=== PATIENT | male | born 1930 | race Hispanic/Latino ===

== ENCOUNTER 2016-12-31 12:30 | Inpatient (IN) | payer MEDICARE, MEDICAID ==
[2016-12-31 12:44] VITALS: BMI 20.3
[2016-12-31] MEDS ORDERED: Albuterol-Ipratrop 3 mg / 0.5 (3 ml) UD IH STA ×2 (13:05→14:24)
[2016-12-31] MEDS ORDERED: Sodium Chloride 0.9% 1,000 ML IV STA (13:06)
[2016-12-31 13:30] LABS: ARTERIAL BLOOD GAS HCO3 23.8 mmol/L (21-28); ARTERIAL BLOOD GAS PH 7.44 (7.35-7.45)
--- NOTE | 2016-12-31 13:35 | ED PDOC ---
Arrival/HPI - General Chief Complaint: GI Problem Time Seen by Provider: 12/31/16 12:31 Historian: EMS - History of Present Illness Narrative History of Present Illness (Text): 12/31/16 13:32 Patient is an 86 yo male presents from detention with history of failure to thrive and "not eating" as per detention and ambulance personnel report. No further history available currently, no family present, and patient is demented and appears to have altered mental status. Time/Duration: Prior to Arrival Symptom Onset: Gradual Past Medical History - Tetanus Immunization Tetanus Immunization: Unknown - Cardiac Hx Cardiac Disorders: Yes Hx Congestive Heart Failure: Yes - Pulmonary Hx Respiratory Disorders: Yes Hx Bronchitis: Yes - Neurological Hx Neurological Disorder: Yes HX Cerebrovascular Accident: Yes (l hemiplagia) Hx Parkinson's Disease: Yes Hx Seizures: Yes - HEENT Hx HEENT Disorder: No - Renal Hx Renal Disorder: No - Endocrine/Metabolic Hx Endocrine Disorders: No - Hematological/Oncological Hx Blood Disorders: No - Integumentary Hx Dermatological Disorder: Yes Other/Comment: OPEN SORES ON HEAD CELLULITIS RIGHT AL - Musculoskeletal/Rheumatological Hx Falls: No - Gastrointestinal Hx Gastrointestinal Disorders: Yes Hx Gastroesophageal Reflux: Yes - Genitourinary/Gynecological Hx Genitourinary Disorders: Yes Hx Incontinence: Yes (AT TIMES) - Psychiatric Hx Psychophysiologic Disorder: Yes Hx Bipolar Disorder: Yes Hx Depression: Yes Hx Substance Use: No - Past Surgical History Past Surgical History: Unable to Obtain - Surgical History Other/Comment: SKIN GRAFT RIGHT LEG - Anesthesia Hx Anesthesia: No Hx Anesthesia Reactions: No Hx Malignant Hyperthermia: No - Suicidal Assessment Feels Threatened In Home Enviroment: No Family/Social History Family/Social History: Unknown Family HX Smoking Status: Never Smoked Hx Alcohol Use: No Hx Substance Use: No Hx Substance Use Treatment: No Allergies/Home Meds Allergies/Adverse Reactions: Allergies No Known Allergies Allergy (Verified 02/06/13 08:55) Home Medications: Home Meds Medication Instructions Recorded Confirmed Acetaminophen [Tylenol (Renal)] 650 mg PO PRN PRN 12/31/16 12/31/16 Mutivitamin 1 tab PO DAILY 12/31/16 12/31/16 Phenytoin [Dilantin Chewable Tab] 200 mg PO BID 12/31/16 12/31/16 Review of Systems - Review of Systems Systems not reviewed;Unavailable: Dementia Gastrointestinal: Appetite Changes Physical Exam - Physical Exam Narrative Physical Exam (Text): Head: Atraumatic. Normocephalic. No facial edema. Eyes: PERRL. EOMI. Conjunctivae are not pale. ENT: Mucous membranes are dry. Oral lesions noted. Tongue is tacky, without angioedema. Neck: Supple. No meningeal signs. No carotid bruits. Cardiovascular: Tachycardic, systolic murmur noted. Pulmonary/Chest: Tachypneic with rhonchi bilaterally. Abdominal: Mildly distended but soft. Rectal: heme negative stool, no melena Back: No CVA tenderness. Extremities: No edema. No cyanosis. No clubbing. Full range of motion in all extremities. No calf tenderness. Skin: Skin is pale. Neurological: No acute focal weakness, noted, no acute facial droop noted. Moves all extremities. Will follow some commands. Psychiatric: Poor interaction, poor eye contact. Vital Signs Reviewed: Yes Vital Signs Temp Pulse Resp BP Pulse Ox 12/31/16 17:29 93 H 16 120/66 89 L 12/31/16 17:24 86 15 107/71 90 L 12/31/16 17:09 81 15 107/63 91 L 12/31/16 16:50 83 15 110/72 92 L 12/31/16 16:34 96 H 14 127/78 89 L 12/31/16 16:25 84 15 125/95 H 92 L 12/31/16 16:20 99.4 F 12/31/16 16:09 90 17 115/77 94 L 12/31/16 15:50 89 16 124/77 92 L 12/31/16 15:35 86 17 125/84 88 L 12/31/16 15:20 95 H 18 145/84 89 L 12/31/16 14:51 93 H 17 138/86 89 L 12/31/16 14:14 107 H 18 109/71 92 L 12/31/16 13:06 99.4 F 12/31/16 12:43 116 H 18 111/78 94 L Temperature: Afebrile Respiratory Rate: Tachypneic Appearance: Positive for: Ill-Appearing Pain Distress: Moderate Mental Status: Positive for: Confused Finger Stick Blood Glucose: 143 Medical Decision Making ED Course and Treatment: History obtained from EMS and detention report as patient is limited historian. On exam, he is hypoxic, although saturations improved when placed on nasal cannula. Patient does not appear to be in respiratory distress. No focal neuro deficits noted. Abdomen is soft with no peritoneal signs. Rectal exam with no melena or active bleeding. CXR is abnormal when compared to previous: Report Date : 12/31/2016 14:27:00 Procedure: Chest xray Dictator : Clark Moon MD IMPRESSION: Superimposed infiltrates. Chronic interstitial lung disease, this consists of reticulonodular pattern, linear interstitial changes, scarring at the apices. Nebulizers given and iv antibiotics ordered. As lactate elevated and wbc elevated with suspicion of pneumonia, code sepsis initiated. Hypernatremia noted, suspect component of dehydration as BUN/Cr also elevated. No focal neuro deficits currently noted. Will admit for pneumonia, sepsis, electrolyte abnormalities and hydration. Case d/w Dr. Patrice Delcid, will admit to telemetry bed. Oxygen saturations improved on nasal cannula. INR elevated. Patient not on blood thinner as per records. NO melena or focal neuro deficits or active bleeding noted. Repeat INR ordered. - Lab Interpretations Lab Results: 12/31/16 14:15 12/31/16 14:15 Lab Results 12/31/16 14:35: PT 28.5 H, INR 2.64 H, APTT 37.6 H 12/31/16 14:15: WBC 15.1 H D, RBC 4.53, Hgb 15.3, Hct 45.5, MCV 100.4, MCH 33.8 , MCHC 33.6, RDW 16.5 H, Plt Count 221, MPV 11.7 H, Gran % 87.7 H, Lymph % (Auto ) 4.6 L, [place] % (Auto) 7.6 H, Eos % (Auto) 0.0 L, Baso % (Auto) 0.1, Gran # 13.23 H, Lymph # 0.7 L, [place] # 1.2 H, Eos # 0.0, Baso # 0.01, pO2 56 H, VBG pH 7.36, VBG pCO2 46.0, VBG HCO3 26.0, VBG Total CO2 27.4, VBG O2 Sat (Calc) 88.2 H , VBG Base Excess 0.1, VBG Potassium 11.3 H*, Glucose 151 H, Lactate 3.3 H, FiO2 21.0, Sodium 146.0, Potassium 4.2, Chloride 116.0 H, Carbon Dioxide 25, Anion Gap 24 H, BUN 68 H, Creatinine 1.5 H, Est GFR ( Amer) 54, Est GFR ( Non-Af Amer) 44, Random Glucose 160 H, Calcium 10.2, Phosphorus 4.5, Magnesium 2.4 H, Total Bilirubin 1.5 H, AST 28, ALT 7, Alkaline Phosphatase 148 H, Lactate Dehydrogenase 468, Total Creatine Kinase 50, Troponin I 0.07 D, Total Protein 8.5 H, Albumin 3.4, Globulin 5.1, Albumin/Globulin Ratio 0.7 L, Venous Blood Potassium 11.3 H* 12/31/16 13:27: pCO2 35, pO2 46.0 L, HCO3 23.8, ABG pH 7.44, ABG Total CO2 24.9 , ABG O2 Saturation 79.8 L, ABG Base Excess 0.1, ABG Potassium 3.8, Glucose 149 H, Lactate 1.9, FiO2 21.0, Sodium 155.0 H, Chloride 119.0 H, Arterial Blood Potassium 3.8 - RAD Interpretation Narrative RAD Interpretations (Text): 12/31/16 22:51 cxr superimposed infiltrates Radiology Orders: 12/31/16 12:55 CHEST PORTABLE [RAD] Stat Ciaio Lumite Injector: Radiologist - EKG Interpretation EKG Interpretation (Text): EKG 13:02 sinus tachycardia rate of 110 with right bundle branch block, bifascicular block Interpreted by ED Physician: Yes Type: 12 lead EKG - Medication Orders Current Medication Orders: Dextrose (Dextrose 5% In Water 1000 Ml) 1,000 mls @ 100 mls/hr IV .Q10H KRISTYN Stop: 01/01/17 14:44 Last Admin: 12/31/16 21:45 Dose: 100 MLS/HR eMAR Start Stop Document 12/31/16 21:45 JUAN A (Rec: 12/31/16 21:45 JUAN A [id number] Intravenous Solution Start Date 12/31/16 Start Time 21:45 Cefepime HCl (Maxipime 2gm) 100 mls @ 100 mls/hr IVPB Q12 KRISTYN PRN Reason: Protocol Stop: 01/05/17 22:31 Linezolid (Zyvox 600mg/300ml D5w) 300 mls @ 200 mls/hr IVPB Q12 KRISTYN PRN Reason: Protocol Stop: 01/07/17 22:31 Vancomycin HCl (Vancomycin 1gm) 250 mls @ 167 mls/hr IVPB STAT STA PRN Reason: Protocol Stop: 12/31/16 23:55 Phenytoin (Dilantin) 200 mg PO BID KRISTYN Last Admin: 12/31/16 21:46 Dose: 200 MG Discontinued Medications Albuterol/Ipratropium (Duoneb 3 Mg/0.5 Mg (3 Ml) Ud) 3 ml IH STAT STA Stop: 12/31/16 13:06 Last Admin: 12/31/16 13:32 Dose: 3 ML Albuterol/Ipratropium (Duoneb 3 Mg/0.5 Mg (3 Ml) Ud) 3 ml IH STAT STA Stop: 12/31/16 14:25 Last Admin: 12/31/16 14:28 Dose: 3 ML Sodium Chloride (Sodium Chloride 0.9%) 1,000 mls @ 1,000 mls/hr IV .Q1H STA Stop: 12/31/16 14:05 Last Admin: 12/31/16 13:33 Dose: 1,000 MLS/HR eMAR Start Stop Document 12/31/16 13:33 SF (Rec: 12/31/16 13:33 [id number] Intravenous Solution Start Date 12/31/16 Start Time 13:33 End Date 12/31/16 End time 14:33 Total Infusion Time 60 Cefepime HCl (Maxipime 2gm) 100 mls @ 100 mls/hr IVPB STAT STA PRN Reason: Protocol Stop: 12/31/16 15:49 Last Admin: 12/31/16 15:23 Dose: 100 MLS/HR eMAR Start Stop Document 12/31/16 15:23 SF (Rec: 12/31/16 15:24 SF [id number] Intravenous Solution Start Date 12/31/16 Start Time 15:24 End Date 12/31/16 End time 16:24 Total Infusion Time 60 Sodium Chloride (Sodium Chloride 0.9%) 500 mls @ 1,000 mls/hr IV .Q30M STA Stop: 12/31/16 15:43 Last Admin: 12/31/16 15:24 Dose: 1,000 MLS/HR eMAR Start Stop Document 12/31/16 15:24 SF (Rec: 12/31/16 15:24 [id number] Intravenous Solution Start Date 12/31/16 Start Time 15:14 End Date 12/31/16 End time 15:45 Total Infusion Time 31 Disposition/Present on Arrival - Present on Arrival Any Indicators Present on Arrival: No History of DVT/PE: No History of Uncontrolled Diabetes: No Urinary Catheter: No History of Decub. Ulcer: No History Surgical Site Infection Following: None - Disposition Have Diagnosis and Disposition been Completed?: Yes Diagnosis: Pneumonia, Hypoxia, Renal insufficiency, Dehydration, Hypernatremia Disposition: HOSPITALIZED Disposition Time: 14:10 Patient Plan: Admission, Telemetry Patient Problems: Current Active Problems Problem Status Diagnosed Dehydration Acute Hypernatremia Acute Hypoxia Acute Pneumonia Acute Renal insufficiency Acute Condition: SERIOUS
[2016-12-31 14:27] LABS: ADD MANUAL DIFF? NO
--- NOTE | 2016-12-31 14:28 | RAD ---
HISTORY: Shortness of breath. Technique: Supine view performed @ 13:10. COMPARISON: 02/06/2013, 09/15/2015. FINDINGS: LUNGS: Worsening infiltrates bilaterally right lung greater than left. Superimposed interstitial lung disease, present on prior studies as far back as 02/06/2013. PLEURA: Pleural plaques consistent with prior asbestos exposure. CARDIOVASCULAR: Normal. OSSEOUS STRUCTURES: No significant abnormalities. VISUALIZED UPPER ABDOMEN: Normal. OTHER FINDINGS: None. IMPRESSION: Superimposed infiltrates. Chronic interstitial lung disease, this consists of reticulonodular pattern, linear interstitial changes, scarring at the apices.
[2016-12-31 14:33] LABS: VENOUS BLOOD GAS BASE EXCESS 0.1 mmol/L (0.0-2.0); VENOUS BLOOD PH 7.36 (7.32-7.43)
[2016-12-31 14:34] LABS: BASO # 0.01 K/mm3 (0.0-2.0); BASO % 0.1 % (0.0-3.0); GRAN # 13.23 (1.4-6.5); GRAN % 87.7 % (50.0-68.0); HEMATOCRIT 45.5 % (42.0-52.0); LYMPH # 0.7 (1.2-3.4); LYMPH % 4.6 % (22.0-35.0); MEAN CELL VOLUME 100.4 fL (80.0-105.0); MEAN CORPUSCULAR HEMOGLOBIN 33.8 pg (25.0-35.0); MEAN CORPUSCULAR HGB CONC 33.6 g/dl (31.0-37.0); MEAN PLATELET VOLUME 11.7 fl (7.0-11.0); MONO # 1.2 (0.1-0.6); MONO % 7.6 % (1.0-6.0); PLATELET COUNT 221 10^3/uL (120.0-450.0); RED CELL DISTRIBUTION WIDTH 16.5 % (11.5-14.5); WHITE BLOOD COUNT 15.1 10^3/ul (4.5-11.0)
[2016-12-31 14:48] LABS: ALB/GLOB RATIO 0.7 (1.1-1.8); BILIRUBIN,TOTAL 1.5 mg/dL (0.2-1.3); CALCIUM 10.2 mg/dL (8.4-10.5); POTASSIUM 4.2 mmol/L (3.6-5.0); TOTAL PROTEIN 8.5 g/dL (5.8-8.3)
[2016-12-31] MEDS ORDERED: Cefepime IV 2 gm in NS 100 ML IVPB STA (14:50)
[2016-12-31 15:02] LABS: INR 2.64 (0.93-1.08); PARTIAL THROMBOPLASTIN TIME 37.6 Seconds (23.7-30.8)
[2016-12-31 15:09] LABS: MAGNESIUM 2.4 mg/dL (1.7-2.2); PHOSPHOROUS 4.5 mg/dL (2.5-4.5)
[2016-12-31] MEDS ORDERED: Sodium Chloride 0.9% 500 ML IV STA (15:14)
[2016-12-31 15:21] LABS: TROPONIN I 0.07 ng/mL
[2016-12-31 15:24] LABS: URINE BILIRUBIN SMALL (NEGATIVE); URINE BLOOD TRACE-LYSED (NEGATIVE); URINE GLUCOSE (UA) NEGATIVE (NEGATIVE); URINE KETONE NEGATIVE (NEGATIVE); URINE LEUKOCYTE ESTERASE NEGATIVE Leu/uL (NEGATIVE); URINE PROTEIN NEGATIVE mg/dL (<30 mg/dL); URINE UROBILINOGEN 0.2 E.U./dL (<1 E.U./dL)
[2016-12-31 15:25] LABS: URINE APPEARANCE CLEAR (CLEAR); URINE COLOR DARK YELLOW (YELLOW)
[2016-12-31 15:36] LABS: URINE BACTERIA TRACE (NEG); URINE EPITHELIAL CELLS 0 - 2 /hpf (0-5); URINE RBC 0 - 2 /hpf (0-2); URINE WBC 0 - 2 /hpf (0-6)
[2016-12-31 16:26] LABS: VENOUS BLOOD GAS BASE EXCESS -2.6 mmol/L (0.0-2.0); VENOUS BLOOD PH 7.28 (7.32-7.43)
[2016-12-31 19:02] LABS: VENOUS BLOOD GAS BASE EXCESS -1.9 mmol/L (0.0-2.0); VENOUS BLOOD PH 7.33 (7.32-7.43)
[2016-12-31] MEDS ORDERED: Vancomycin 1gm in NS 250ml 250 ML IVPB STA (22:26)
[2017-01-01] MEDS: Linezolid 600 mg in D5W 300 ml 300 ML IVPB SCH ×2 (00:16→14:19)
[2017-01-01] MEDS: Cefepime IV 2 gm in NS 100 ML IVPB SCH ×3 (00:18→21:51)
[2017-01-01 00:22] LABS: VENOUS BLOOD PH 7.36 (7.32-7.43)
--- NOTE | 2017-01-01 02:52 | HP ---
CHIEF COMPLAINT AND HISTORY OF PRESENT ILLNESS: This is an 86-year-old male who was sent by me to [facility] because he was having failure to thrive. He is going to be evaluated for PEG placement by Dr. Valdivia. The patient has been slowly declining. He has not been able to eat or drink. He has not been able to ambulate for the past few months. He is also becoming more confused. The patient is n ot able to give any history because of his underlying medical and underlying dementia. ALLERGIES: No known drug allergies. PAST MEDICAL HISTORY: Dementia, bipolar disorder, osteoarthritis, subluxation of C1 and C2, hearing impairment. MEDICATIONS: Vitamins, Tylenol and Dilantin. SOCIAL HISTORY: He is not . He is a penitentiary care resident at [facility]. He has a sister hannah t is alive and a daughter that I am aware of. PHYSICAL EXAMINATION: VITAL SIGNS: Temperature is 96.6, pulse of 84, blood pressure 119/71, respirations 22, O2 saturation is 91%, height is 5 feet 7, weight is 130 pounds, BMI is 20.4. GENERAL: Patient lying in bed, flat, and in no apparent distress. HEAD AND NECK EXAM: Atraumatic, normocephalic. Conjunctivae are pink. Throat clear and mouth with moist mucosa. Oropharynx benign. He has multiple scabs on the low part of his jaw from scratching. EYES: Extraocular movements are intact. PERRLA. They will also do a full eye exam. NECK: Supple. No JVD, thyromegaly, or adenopathy. No bruits. HEART: S1 and S2 regular rate and rhythm. No murmurs, rubs, or gallops. LUNGS: Clear to auscultation bilaterally. No wheezing rales or rhonchi appreciated. No retraction s on exam. ABDOMEN: Soft, nontender, nondistended. Bowel sounds are positive in all quadrants. No rebound. No hepatosplenomegaly. EXTREMITIES: No cyanosis, clubbing, or edema. On the lower extremities, he has a lesion that is o n his legs bilaterally. It is kirti/red in color. NEURO: No facial asymmetry, tongue is midline, no uvula deviation. Power is 5/5 in upper extremity and 5/5 in lower extremity. Sensation is normal in upper extremity and lower extremity. The patien t is able to move all 4 extremities, but not able to do an exam. On physical exam, he has no effusio n. He has no facial asymmetry. PSYCH: Awake, alert, oriented x3. No anxiety or depression symptoms. Good insight. Normal affec t. : No CVA tenderness VASCULAR: 2+ pulses in carotid and pedal pulses. SKIN: No erythema or abnormal nodules noted. SPINE: Normal curvature. LYMPHADENOPATHY: No anterior cervical or posterior cervical adenopathy. No inguinal adenopathy. LABORATORY DATA: White count of 15.1, hemoglobin 15.3. Chemistry shows a sodium of 155, creatinine is 1.5, BUN is 68. Troponin is 0.07. INR is 2.6. Urine shows blood that has trace nitrites are neg ative, bilirubin small. He has a chest x-ray done that shows superimposed infiltrates, chronic interstitial lung disease. His EKG shows a sinus tachycardia of 110. There is a right bundle branch block. There are PVCs. ASSESSMENT: 1. Delirium. 2. Dementia, Alzheimer's type. 3. Hypernatremia. 4. Failure to thrive. 5. Acute kidney injury. 6. Sepsis. 7. Gait dysfunction. 8. Hearing impairment. PLAN: The patient is going to be admitted to the hospital. He was given IV fluids to help resuscita te him. The patient has an elevated white count. He has hypernatremia. He is going to be placed on D5W. He has been given IV antibiotics by . He is going to be seen by infectious disease, as well as Dr. Valdivia to evaluate the patient. He is going to need a palliative care evaluation as romelia oakley I will get Sarah Paramonte to evaluate the patient. Overall, patient's prognosis is guarded. Burke Delcid MD cc: [id number] TT: 01/01/2017 02:51:42 [place]
[2017-01-01 06:40] LABS: INR 2.68 (0.93-1.08)
[2017-01-01 06:41] LABS: MEAN CELL VOLUME 100.5 fL (80.0-105.0); MEAN CORPUSCULAR HEMOGLOBIN 33.4 pg (25.0-35.0); MEAN CORPUSCULAR HGB CONC 33.3 g/dl (31.0-37.0); MEAN PLATELET VOLUME 11.3 fl (7.0-11.0); RED CELL DISTRIBUTION WIDTH 15.7 % (11.5-14.5)
[2017-01-01] MEDS ORDERED: Albuterol-Ipratrop 3 mg / 0.5 (3 ml) UD IH STA (09:06)
--- NOTE | 2017-01-01 09:17 | CP.PCM.CON ---
History of Present Illness - History of Present Illness History of Present Illness: Palliative consult requested by Dr Patrice Delcid Reason: Goals of care HPI: Resident of [facility] sent due to lethargy, decreased appetite, failure to thrive.Chest x ray showed chronic interstitial lung disease with superimposed infiltrates. Labs indicate sepsis, hypernatremia, acute kidney injury. PMHx: dementia, bipolar disorder, osteoarthritis, hearing impairment. Social History:Former smoker,no alcohol or drug use. halfway care resident of [facility]. Advance Care Planning: The patient has an Advanced Directive. He is DNR/DNI. His sister Sangeetha Dhaliwal and his daughter Freida Billings are his health care proxies. Review of Systems: Unable to obtain, patient is non verbal and altered mental status Past Patient History - Tetanus Immunizations Tetanus Immunization: Unknown - Past Social History Smoking Status: Never Smoked - CARDIAC Hx Cardiac Disorders: Yes Hx Congestive Heart Failure: Yes - PULMONARY Hx Respiratory Disorders: Yes Hx Bronchitis: Yes - NEUROLOGICAL Hx Neurological Disorder: Yes HX Cerebrovascular Accident: Yes (l hemiplagia) Hx Parkinson's Disease: Yes Hx Seizures: Yes - HEENT Hx HEENT Problems: No - RENAL Hx Chronic Kidney Disease: No - ENDOCRINE/METABOLIC Hx Endocrine Disorders: No - HEMATOLOGICAL/ONCOLOGICAL Hx Blood Disorders: No - INTEGUMENTARY Hx Dermatological Problems: Yes Other/Comment: OPEN SORES ON HEAD CELLULITIS RIGHT AL - MUSCULOSKELETAL/RHEUMATOLOGICAL Hx Falls: No - GASTROINTESTINAL Hx Gastrointestinal Disorders: Yes Hx Gastroesophageal Reflux: Yes - GENITOURINARY/GYNECOLOGICAL Hx Genitourinary Disorders: Yes Hx Incontinence: Yes (AT TIMES) - PSYCHIATRIC Hx Psychophysiologic Disorder: Yes Hx Bipolar Disorder: Yes Hx Depression: Yes Hx Substance Use: No - SURGICAL HISTORY Other/Comment: SKIN GRAFT RIGHT LEG - ANESTHESIA Hx Anesthesia: No Hx Anesthesia Reactions: No Hx Malignant Hyperthermia: No Meds Allergies/Adverse Reactions: Allergies Allergy/AdvReac Type Severity Reaction Status Date / Time No Known Allergies Allergy Verified 02/06/13 08:55 - Medications Medications: Current Medications Albuterol/Ipratropium (Duoneb 3 Mg/0.5 Mg (3 Ml) Ud) 3 ml IH STAT STA Stop: 01/01/17 09:07 Albuterol/Ipratropium (Duoneb 3 Mg/0.5 Mg (3 Ml) Ud) 3 ml IH [id number] KRISTYN Dextrose (Dextrose 5% In Water 1000 Ml) 1,000 mls @ 100 mls/hr IV .Q10H [facility] Stop: 01/01/17 14:44 Last Admin: 12/31/16 21:45 Dose: 100 mls/hr Cefepime HCl (Maxipime 2gm) 100 mls @ 100 mls/hr IVPB Q12 KRISTYN PRN Reason: Protocol Stop: 01/05/17 22:31 Last Admin: 01/01/17 00:18 Dose: 100 mls/hr Linezolid (Zyvox 600mg/300ml D5w) 300 mls @ 200 mls/hr IVPB Q12 KRISTYN PRN Reason: Protocol Stop: 01/07/17 22:31 Last Admin: 01/01/17 00:16 Dose: 200 mls/hr Phenytoin (Dilantin) 200 mg PO BID [facility] Last Admin: 12/31/16 21:45 Dose: Not Given Physical Exam - Constitutional Appears: Cachectic, Chronically Ill - Head Exam Head Exam: NORMOCEPHALIC - Eye Exam Eye Exam: Normal appearance, PERRL - ENT Exam ENT Exam: Mucous Membranes Moist, Normal Oropharynx - Neck Exam Neck exam: Positive for: Normal Inspection - Respiratory Exam Respiratory Exam: Decreased Breath Sounds, Rhonchi - Cardiovascular Exam Cardiovascular Exam: REGULAR RHYTHM, +S1, +S2 - GI/Abdominal Exam GI & Abdominal Exam: Diminished Bowel Sounds, Soft Additional comments: no tenderness or guarding - Extremities Exam Additional comments: lower extremities contracted - Neurological Exam Neurological exam: Altered - Skin Skin Exam: Dry, Pallor Additional comments: no rashers or decubiti - Additional Findings Additional findings: Palliative performance scale rating 20 % Results - Vital Signs Recent Vital Signs: Last Vital Signs Temp 97.8 F 01/01/17 06:00 Pulse 82 01/01/17 06:00 Resp 19 01/01/17 06:00 BP 110/62 01/01/17 06:00 Pulse Ox 97 01/01/17 06:00 - Labs Result Diagrams: 01/01/17 06:00 01/01/17 06:00 Labs: Laboratory Results - last 24 hr 12/31/16 12/31/16 12/31/16 15:15 16:22 18:53 WBC RBC Hgb Hct MCV MCH MCHC RDW Plt Count MPV PT INR pO2 47 34 VBG pH 7.28 L 7.33 VBG pCO2 53.0 46.0 VBG HCO3 24.9 24.3 VBG Total CO2 26.5 25.7 VBG O2 Sat (Calc) 76.1 H 56.6 VBG Base Excess -2.6 L -1.9 L VBG Potassium 4.0 4.3 Sodium 155.0 H 157.0 H Chloride 120.0 H 120.0 H Glucose 153 H 161 H Lactate 2.3 H 2.4 H FiO2 21.0 21.0 Venous Blood Potassium 4.0 4.3 Urine Color Dark yellow Urine Appearance Clear Urine pH 6.0 Ur Specific [place] 1.020 Urine Protein Negative Urine Glucose (UA) Negative Urine Ketones Negative Urine Blood Trace-lysed H Urine Nitrate Negative Urine Bilirubin Small H Urine Urobilinogen 0.2 Ur Leukocyte Esterase Negative Urine RBC 0 - 2 Urine WBC 0 - 2 Ur Epithelial Cells 0 - 2 Urine Bacteria Trace 01/01/17 01/01/17 00:10 06:00 WBC 12.0 H D RBC 3.98 Hgb 13.3 L Hct 40.0 L MCV 100.5 MCH 33.4 MCHC 33.3 RDW 15.7 H Plt Count 186 MPV 11.3 H PT 28.9 H INR 2.68 H pO2 41 VBG pH 7.36 VBG pCO2 48.0 VBG HCO3 27.1 VBG Total CO2 28.6 H VBG O2 Sat (Calc) 77.0 H VBG Base Excess 1.0 VBG Potassium 4.8 Sodium 158.0 H Chloride 123.0 H Glucose 215 H Lactate 2.0 FiO2 21.0 Venous Blood Potassium 4.8 Urine Color Urine Appearance Urine pH Ur Specific [place] Urine Protein Urine Glucose (UA) Urine Ketones Urine Blood Urine Nitrate Urine Bilirubin Urine Urobilinogen Ur Leukocyte Esterase Urine RBC Urine WBC Ur Epithelial Cells Urine Bacteria Assessment & Plan - Assessment and Plan (Free Text) Assessment: 86 year old male admitted with sepsis, hypernatrmeia, JANELLE, failure to thrive Patient is bed bound,weak, lethargic, non verbal. Patient has an Advanced Directive. I was unable to reach health care proxy Sangeetha . I was able to reach Freida Billings his daughter and second proxy via phone.Daughter ani I spoke about patient's overall medical status. Daughter explained that patient was doing very poorly about a year ago , very similar situation but was back to bounce back. Daughter recognizes that he will never improve dramatically but stets that her father is alert and conversing when she and other family members visit him at the OR. Benefits and burdens of PEG tube tube explained in detail, questions answered. Daughter leaning towards PEG placement. She wants to speak with other family members, including Sangeetha his other health care proxy before making decision. I provided daughter with my contact information so that she could speak with me if needed. Time spent with patients daughter discussing goals of care and advance care planning, 20 minutes Plan: Continue current medical management. Will assist family in establishing goals of care
--- NOTE | 2017-01-01 09:34 | PN ---
DATE: 01/01/2017 SUBJECTIVE: The patient is not able to communicate well. PHYSICAL EXAMINATION: VITAL SIGNS: Temperature is 26.6, pulse of 84, blood pressure is 119/71, respirations 22. GENERAL: The patient comfortable, in no acute distress. HEENT: Anicteric sclerae. Moist mucosa. NECK: No JVD or adenopathy. CARDIAC: S1/S2. No murmurs. No rubs. Regular. RESPIRATORY: Clear to auscultation bilaterally. No wheezes, rales, or rhonchi. Good air entry. ABDOMEN: Bowel sounds are positive, soft, nontender, and nondistended. EXTREMITIES: No edema. Has 1+ pulses. LABORATORY DATA: White count 51, hemoglobin 15.2. Creatinine is 1.5. ASSESSMENT: 1. Failure to thrive. 2. Hypernatremia. 3. Acute kidney injury. 4. Dementia, Alzheimer's type. 5. Delirium. 6. Sepsis. 7. Gait dysfunction. 8. Hearing impairment. 9. Do not resuscitate/do not intubate. PLAN: The patient is going to need continued close followup. He may need a percutaneous endoscopic gastrostomy because he is not eating and drinking at this point. The patient is currently comfortabl e. He has a procalcitonin that has been ordered. He is on IV fluids with D5 water for his hypernatr emia. He is on cefepime for antibiotics. The patient is going to be seen by Jocelynn Newton from [facility]. He is not a physical therapy candidate as he has not been walking at all for many mon ths now. Burke Delcid MD cc: [id number] TT: 01/01/2017 09:33:22 Confirmation # [id number] Dictation # [id number] en
[2017-01-01 09:35] LABS: ALB/GLOB RATIO 0.6 (1.1-1.8); ALKALINE PHOSPHATASE 107 U/L (38-133); ALT/SGPT 7 U/L (7-56); AST/SGOT 50 U/L (15-59); BILIRUBIN,TOTAL 1.1 mg/dL (0.2-1.3); BLOOD UREA NITROGEN 52 mg/dL (7-21); CARBON DIOXIDE 26 mmol/L (21-33); CHLORIDE 116 mmol/L (98-107); GFR AFRICAN-AMERICAN > 60; GLUCOSE,RANDOM 266 mg/dL (70-110); MAGNESIUM 2.1 mg/dL (1.7-2.2); PHOSPHOROUS 2.7 mg/dL (2.5-4.5); POTASSIUM 3.8 mmol/L (3.6-5.0); SODIUM 153 mmol/L (132-148); TOTAL PROTEIN 7.2 g/dL (5.8-8.3)
--- NOTE | 2017-01-01 12:27 | CON ---
DATE: 01/01/2017 HISTORY OF PRESENT ILLNESS: The patient is an 86-year-old male who was admitted for failure to thriv e. PAST MEDICAL HISTORY: Scanty. His last cardiac evaluation revealed an ejection fraction that was mildly hypokinetic. He has severe dementia. In addition, the patient is thought to be septic and has had decreased function. He existence is bedb ound. His appetite has been decreased. He is admitted for the possibility of PEG placement. No documented previous cardiac history in the past. SOCIAL HISTORY: Unavailable. REVIEW OF SYSTEMS: Unavailable. PHYSICAL EXAMINATION: GENERAL: The patient is cachectic in bed, markedly confused, but in no distress. VITAL SIGNS: Blood pressure is 110/62, the heart rate is in the 80s. NECK: Negative JVD. LUNGS: Positive rhonchi. HEART: Reveals S1, S2. EXTREMITIES: Without edema. EKG shows nonspecific ST-T changes. LABORATORIES: Sodium is 153, glucose is 266, troponin is 0.07, BUN and creatinine is 52 and 0.7. Hemoglobin is 13.3. IMPRESSION: 1. Failure to thrive. 2. Marked dehydration. 3. Questionable non-ST elevation myocardial infarction. 4. Severe dementia. 5. Rhonchi with questionable chronic obstructive pulmonary disease. PLAN: Given these findings, the patient is a DNR/DNI. There is no preop evaluation necessary for po ssible PEG placement. Supportive care only. We will discontinue telemetry after his PEG placement. Moises Vaughan MD cc: [facility] TT: 01/01/2017 12:19:11 Confirmation # [id number] Dictation # [id number] radha
--- NOTE | 2017-01-01 13:01 | CON ---
DATE: 01/01/2017 REQUESTING PHYSICIAN: Dr. Delcid. REASON FOR CONSULTATION: I have been asked to see this unfortunate 86-year-old male resident of [facility] with a longstanding history of dementia, recently with poor oral intake and failur e to thrive over the last several weeks. The patient has been bedridden for the last several months and apparently has become increasingly confused. The patient is awake but nonverbal. History is obt ained from the chart. Routine blood work in the Emergency Room showed serum sodium to be elevated at 155. He also has elevated PT in the 20s and INR. I could not find any evidence that the patient wa s on any anticoagulants. PAST MEDICAL HISTORY: As above. Again, he has a history of dementia, degenerative joint disease, bi polar disorder, subluxation of C1 and C2. SOCIAL HISTORY: He is domiciled at [facility]. Apparently the patient has advanced directive and living will with a DNR. I do not have access to [facility] advanced directive to see whether he has any wishes regarding artificial enteral feedings. REVIEW OF SYSTEMS: Is unobtainable due to patient's dementia. PHYSICAL EXAMINATION: GENERAL: Elderly emaciated, cachectic male lying in bed awake and alert, in no distress. He does liz ve some gurgling sounds in his throat. VITAL SIGNS: Reveal temperature of 97.8, blood pressure 110/62, heart rate of 82. HEENT: Reveal poor hygiene of his oral mucosa. His tongue is dry. He has bitemporal wasting. NECK: Supple. CHEST: Reveals lungs to be clear. HEART: Reveals a regular rate and rhythm. ABDOMEN: Soft, scaphoid, nontender. EXTREMITIES: Show no pedal edema. LABORATORY DATA: Reveal white blood cell count down from 15.1 to 12, hemoglobin 13.3. Chemistries r eveal serum sodium down to 153 from 155, chloride 116, BUN 52, creatinine 0.7. PT/INR are 28.9 and 2 .68. IMPRESSION: An unfortunate 86-year-old male with advanced dementia, poor oral intake, failure to thr tung with hypernatremia and coagulopathy. He does have an advanced directive and I do not have that a t my disposal to see whether he has any directives for long-term artificial feedings. RECOMMENDATIONS: I am not inclined to put in a feeding tube at this time as there is no prognosis fo r this patient in terms of recovering from his dementia. Palliative care nurse is involved in the ca se. I believe that patient should be treated with comfort measures and supportive care without placi ng a feeding tube. The patient also has coagulopathy at this point which would prevent a feeding tub e insertion at this time. Saul Valdivia MD cc: [phone] TT: 01/01/2017 13:00:56 Confirmation # [id number] Dictation # [id number] jn
--- NOTE | 2017-01-01 13:12 | CP.PCM.CON ---
History of Present Illness - History of Present Illness History of Present Illness: 85 year old male with PMH of HTN, chronic bronchitis, Parkinson's disease, history of seizures, GERD, dementia was [facility] because the patient has been having poor appetite. Full review of systems is unobtainable because of the patient's dementia. There is no note of fevers in the penitentiary, no vomiting, no diarrhea, no convulsions , no loss of consciousness, no respiratory distress, no cough. In the ED, patient was noted to have leukocytosis and Infectious Diseases consult is requested to further evaluate and manage. Review of Systems - Review of Systems Systems not reviewed;Unavailable: Dementia Past Patient History - Tetanus Immunizations Tetanus Immunization: Unknown - Past Medical History & Family History Past Medical History?: Yes Past Family History: Reviewed and not pertinent - Past Social History Smoking Status: Never Smoked Alcohol: None Drugs: Denies Home Situation {Lives}: [facility] - CARDIAC Hx Cardiac Disorders: Yes Hx Congestive Heart Failure: Yes - PULMONARY Hx Respiratory Disorders: Yes Hx Bronchitis: Yes - NEUROLOGICAL Hx Neurological Disorder: Yes HX Cerebrovascular Accident: Yes (l hemiplagia) Hx Parkinson's Disease: Yes Hx Seizures: Yes - HEENT Hx HEENT Problems: No Other/Comment: asphasic - RENAL Hx Chronic Kidney Disease: No - ENDOCRINE/METABOLIC Hx Endocrine Disorders: No - HEMATOLOGICAL/ONCOLOGICAL Hx Blood Disorders: No - INTEGUMENTARY Hx Dermatological Problems: Yes Other/Comment: OPEN SORES ON HEAD CELLULITIS RIGHT AL - MUSCULOSKELETAL/RHEUMATOLOGICAL Hx Falls: No - GASTROINTESTINAL Hx Gastrointestinal Disorders: Yes Hx Gastroesophageal Reflux: Yes - GENITOURINARY/GYNECOLOGICAL Hx Genitourinary Disorders: Yes Hx Incontinence: Yes (AT TIMES) - PSYCHIATRIC Hx Psychophysiologic Disorder: Yes Hx Bipolar Disorder: Yes Hx Depression: Yes - SURGICAL HISTORY Other/Comment: SKIN GRAFT RIGHT LEG - ANESTHESIA Hx Anesthesia: No Hx Anesthesia Reactions: No Hx Malignant Hyperthermia: No Meds Allergies/Adverse Reactions: Allergies Allergy/AdvReac Type Severity Reaction Status Date / Time No Known Allergies Allergy Verified 02/06/13 08:55 - Medications Medications: Current Medications Dextrose (Dextrose 5% In Water 1000 Ml) 1,000 mls @ 100 mls/hr IV .Q10H KRISTYN Stop: 01/01/17 14:44 Last Admin: 12/31/16 21:45 Dose: 100 mls/hr Phenytoin (Dilantin) 200 mg PO BID KRISTYN Last Admin: 12/31/16 21:46 Dose: 200 mg Physical Exam - Constitutional Appears: Non-toxic, No Acute Distress - Head Exam Head Exam: NORMAL INSPECTION - ENT Exam ENT Exam: Mucous Membranes Moist - Neck Exam Neck exam: Negative for: Lymphadenopathy, Meningismus - Respiratory Exam Respiratory Exam: Decreased Breath Sounds, Rhonchi (scattered) - Cardiovascular Exam Cardiovascular Exam: +S1, +S2 - GI/Abdominal Exam GI & Abdominal Exam: Soft. absent: Tenderness Results - Vital Signs Recent Vital Signs: Last Vital Signs Temp 96.6 F L 12/31/16 18:27 Pulse 84 12/31/16 18:27 Resp 22 12/31/16 18:27 BP 119/71 12/31/16 18:27 Pulse Ox 91 L 12/31/16 18:27 - Labs Result Diagrams: 01/01/17 06:00 01/01/17 06:00 Labs: Laboratory Results - last 24 hr 12/31/16 12/31/16 12/31/16 15:15 16:22 18:53 pO2 47 34 VBG pH 7.28 L 7.33 VBG pCO2 53.0 46.0 VBG HCO3 24.9 24.3 VBG Total CO2 26.5 25.7 VBG O2 Sat (Calc) 76.1 H 56.6 VBG Base Excess -2.6 L -1.9 L VBG Potassium 4.0 4.3 Sodium 155.0 H 157.0 H Chloride 120.0 H 120.0 H Glucose 153 H 161 H Lactate 2.3 H 2.4 H FiO2 21.0 21.0 Venous Blood Potassium 4.0 4.3 Urine Color Dark yellow Urine Appearance Clear Urine pH 6.0 Ur Specific [place] 1.020 Urine Protein Negative Urine Glucose (UA) Negative Urine Ketones Negative Urine Blood Trace-lysed H Urine Nitrate Negative Urine Bilirubin Small H Urine Urobilinogen 0.2 Ur Leukocyte Esterase Negative Urine RBC 0 - 2 Urine WBC 0 - 2 Ur Epithelial Cells 0 - 2 Urine Bacteria Trace Assessment & Plan - Assessment and Plan (Free Text) Plan: Assessment Systemic Inflammatory Response Syndrome, consider severe sepsis with acute renal failure from bilateral healthcare-associated pneumonia with possible gram positive cocci and/or gram negative bacilli HTN chronic bronchitis Parkinson's disease history of seizures GERD dementia Plan Started patient on Zyvox and Cefepime pending blood, urine, sputum cx, PCT; reviewed CXR - patient should have a repeat CXR tomorrow Will follow clinically Overall prognosis is poor for this patient; GI has been consulted for possible PEG placement
[2017-01-01] MEDS ORDERED: Albuterol-Ipratrop 3 mg / 0.5 (3 ml) UD IH SCH (14:00)
--- NOTE | 2017-01-01 14:04 | PQF MALNUT ---
Dr. Delcid, Chart reflects this patient was admitted with failure to thrive evidenced by low body weight, BMI of 15.7, low albumin of 2.8, poor oral intake. Documentation by consultants notes that patient is cachectic, looks malnourished. There was the possibility of placing a PEG tube. Please specify if there is a nutritional diagnosis that can capture the indicators mentioned. This form is a permanent part of the medical record Clarification of your documentation is requested to better reflect the severity of illness and intensity of treatment of your patient. Indicators present [x] Cachexia (due to severe malnutrition) [x] Albumin < 2.8 [x] Dietary Consult [x] Provider documentation reflects BMI of: []_15.7 [] Low serum proteins [] Documented weight loss [x] Inability to consume adequate caloric intake [x] Anorexic [] Other: [] Location in the medical record that reflects the above clinical findings: [] Treatment Provided: [] PHYSICIAN'S RESPONSE Based on your medical judgment of the clinical indicators outlined above, are you treating this patient for a known or suspected: Type of Malnutrition Severity [] Mild [x] Moderate [] Severe [] Protein calorie [] Mild [x] Moderate [] severe [] Other, please indicate: []_ [] If Unable to Determine, please check the box, sign and date. Present On Admission (POA) Indicator: [x] Present at the time of admission [] Not present at the time of admission [] Clinically Undetermined In responding to this query, please exercise your independent professional judgment. The fact that a question is asked does not imply that any particular answer is desired or expected. Thank you for your clarification on this documentation. If you have any questions please call:[ ] * Thank you, [ ]Celina Patton [facility] #[id number] specialty plant supervisor Malnutrition Malnutrition results from an imbalance between the body's intake of nutrients and the body's use of nutrients to fuel energy expenditure. Malnutrition may be described as mild, moderate or severe. There are variations in clinical indicators, lab values and risk factors with each type and degree. When reviewing the nutritional status of the client, the entire clinical picture should be assessed and taken into consideration rather than a focus on a single laboratory value. Mild Malnutrition: patient's weight is noted at 85-95% of normal body weight; BMI 18-18.9; serum albumin 3.0-3.4; total lymphocyte count [id number]. Moderate Malnutrition: patient's weight is noted at 75-85% of normal body weight ; BMI 16-17.9; serum albumin 2.4-3.0; total lymphocyte count 800-1500. Severe Malnutrition: patient's weight is noted at <75% of normal body weight, BMI <16, serum albumin <2.4, total lymphocyte count <800, abnormally low VLDL/ LDL levels, creatinine <0.6, BUN <8, cholesterol <160. Other clinical indicators include: loss of subq fat, muscle wasting of the extremities, skin lesions, decubitus ulcers, hair loss, lethargy, constipation, decreased pulse/ respiratory rates, relative hypotension, hepatomegaly d/t fat infiltration, poor wound healing.~~~~~~ Risk: poor intake d/t food avoidance or NPO status for >7 days, protracted nutritional losses from malabsorption states, hypermetabolic state such as sepsis, prolonged fever, extensive trauma or goff, alcohol/drug abuse, advanced age, CKD, trouble chewing or swallowing, some medications, depression/ social isolation, special diets such as low protein Treatment: dietary consultation, protein-calorie dietary supplementation, daily weights, PEG tube, psychiatric consultation, appetite stimulants (Megace). Harr[employer] Principles of Internal Medicine, 17th edition, chapters 9, 72 and 234. The [employer] Nutritional Support Core Curriculum, 2007 [facility]
[2017-01-01] MEDS ORDERED: Linezolid 600 mg in D5W 300 ml 300 ML IVPB SCH (15:52)
[2017-01-01] MEDS ORDERED: Albuterol-Ipratrop 3 mg / 0.5 (3 ml) UD IH PRN (17:02)
--- NOTE | 2017-01-01 18:50 | CARD ---
APPROVED REPORT EKG Measurement Heart [id number] <Conclusion> Sinus tachycardia with occasional premature ventricular complexes Right bundle branch block Left posterior fascicular block Bifascicular block Abnormal ECG
[2017-01-01] MEDS: Albuterol-Ipratrop 3 mg / 0.5 (3 ml) UD IH SCH (19:06)
[2017-01-02] MEDS: Linezolid 600 mg in D5W 300 ml 300 ML IVPB SCH ×2 (05:41→18:55)
[2017-01-02 07:17] LABS: HEMATOCRIT 39.4 % (42.0-52.0); MEAN CELL VOLUME 101.5 fL (80.0-105.0); MEAN CORPUSCULAR HEMOGLOBIN 33.2 pg (25.0-35.0); MEAN CORPUSCULAR HGB CONC 32.7 g/dl (31.0-37.0); MEAN PLATELET VOLUME 11.5 fl (7.0-11.0); RED CELL DISTRIBUTION WIDTH 16.3 % (11.5-14.5)
[2017-01-02 07:42] LABS: ALB/GLOB RATIO 0.6 (1.1-1.8); ALKALINE PHOSPHATASE 108 U/L (38-133); ALT/SGPT 18 U/L (7-56); AST/SGOT 48 U/L (15-59); BILIRUBIN,TOTAL 0.9 mg/dL (0.2-1.3); BLOOD UREA NITROGEN 48 mg/dL (7-21); CALCIUM 9.7 mg/dL (8.4-10.5); CARBON DIOXIDE 26 mmol/L (21-33); CHLORIDE 117 mmol/L (95-110); GFR AFRICAN-AMERICAN > 60; GLUCOSE,RANDOM 157 mg/dL (70-110); POTASSIUM 4.2 mmol/L (3.6-5.0); TOTAL PROTEIN 7.6 g/dL (5.8-8.3)
[2017-01-02] MEDS: Albuterol-Ipratrop 3 mg / 0.5 (3 ml) UD IH SCH ×2 (07:45→20:03)
[2017-01-02 07:54] LABS: SODIUM 156 mmol/L (132-148)
--- NOTE | 2017-01-02 09:32 | PN ---
DATE: 01/02/2017 SUBJECTIVE: The patient is in bed, lethargic, weak, not taking p.o. PHYSICAL EXAMINATION: VITAL SIGNS: Blood pressure is 111/68, the heart rate is in the 90s. NECK: Negative JVD. LUNGS: Decreased breath sounds. HEART: Reveals S1, S2. EXTREMITIES: Without edema. LABORATORY DATA: Hemoglobin is 12.9. Chemistries: Sodium is 156, glucose is 157. IMPRESSION: 1. Failure to thrive. 2. Dehydration. 3. Dementia. 4. Chronic obstructive pulmonary disease. PLAN: Given these findings, the patient is currently DNR/DNI. Prognosis is poor. Continue supporti ve care. Moises Vaughan MD cc: [phone] TT: 01/02/2017 09:32:00 Confirmation # [id number] Dictation # [id number] tn
[2017-01-02] MEDS: Cefepime IV 2 gm in NS 100 ML IVPB SCH ×2 (10:00→21:37)
--- NOTE | 2017-01-02 12:18 | PN ---
DATE: 01/02/2017 The patient is an 86-year-old, seen and examined, seems to be cachectic, malnourished, poorly respons tung, dry oral mucosa, according to nurse not eating and tolerating. PHYSICAL EXAMINATION: VITAL SIGNS: The patient is afebrile, pulse 90, respirations 22, blood pressure 111/68. LUNGS: Bilateral soft crackle in the upper lung region. He is gurgling his throat secretions. HEART: S1, S2 audible with systolic murmur. ABDOMEN: Soft, nontender, no rebound, no guarding. NEUROLOGIC: The patient is poorly responsive, hardly open eyes on verbal command, bilateral leg dry skin with poor turgor. LABORATORY EXAMINATION: WBC is 10, hemoglobin 12.9, hematocrit 39.4, platelet of 163. Sodium 156, p otassium 4.2, chloride 117, CO2 26, BUN 48, creatinine 0.7, blood sugar 157. Procalcitonin is 0.89. Blood culture and urine cultures are negative. ASSESSMENT AND PLAN: 1. Metabolic encephalopathy. 2. Advanced dementia. 3. Hypernatremia, secondary to poor oral intake. 4. Acute kidney injury. 5. Sepsis. PLAN: Prognosis is very poor. The patient's oral intake is very poor. We will keep him on low dose IV fluid. I will change his Dilantin to 200 IV b.i.d. He is not capable of swallowing on his own. I will start a small dose of analgesic. We will continue him on cefepime. The patient is a perfect candidate for hospice care. He cannot be fed because of high discomfort aspiration. We will reach o ut to the family for hospice care and comfort care. Osvaldo Collins MD cc: [phone] TT: 01/02/2017 12:17:12 Confirmation # [id number] Dictation # [id number] ln
--- NOTE | 2017-01-02 13:03 | PN ---
DATE: 01/02/2017 The patient is in bed in no acute distress, nontoxic. PHYSICAL EXAMINATION: VITAL SIGNS: Temperature is 98, blood pressure is 111/60, respiratory rate of 16. HEENT: Unremarkable. NECK: Supple. LUNGS: Have decreased breath sounds. HEART: Normal S1, S2. ABDOMEN: Soft, nontender. LABORATORY DATA: Reveals a white count of 10,000, hemoglobin of 12, platelets of 163. Chemistries r eveal the BUN of 48, creatinine of 0.7. Procalcitonin 0.8. Urinalysis is noted. Microbiology revea ls the blood cultures are negative. Urine cultures are negative. ASSESSMENT AND PLAN: This is an 86-year-old male with systemic inflammatory response syndrome, sever e sepsis, acute renal failure with bilateral healthcare associated pneumonia, possible gram-positive cocci, possible gram-negative yael with hypertension, chronic bronchitis and Parkinson's disease, hist ory of seizures, gastroesophageal reflux disease, dementia. On Zyvox and cefepime. Overall, prognos is is quite poor for this patient. The patient's initial chest x-ray, worsening infiltrates. Dr. Laurent Love's note is reviewed. Blood culture is negative. Urine culture is negative. The patient razo s have a procalcitonin of 0.89. Overall prognosis is quite poor. Avery Almodovar MD cc: [phone] TT: 01/02/2017 13:03:20 Confirmation # [id number] Dictation # [id number] radha
[2017-01-02] MEDS: Phenytoin 100 mg/2 ml Inj IVP SCH ×2 (13:16→18:56)
[2017-01-03] MEDS: Linezolid 600 mg in D5W 300 ml 300 ML IVPB SCH ×2 (05:15→17:46)
[2017-01-03] MEDS: Albuterol-Ipratrop 3 mg / 0.5 (3 ml) UD IH SCH ×2 (08:07→21:00)
[2017-01-03] MEDS: Cefepime IV 2 gm in NS 100 ML IVPB SCH ×2 (09:30→22:08)
[2017-01-03] MEDS: Phenytoin 100 mg/2 ml Inj IVP SCH ×3 (09:32→17:46)
--- NOTE | 2017-01-03 10:55 | PN ---
DATE: 01/03/2017 The patient seen earlier this morning. No acute distress, nontoxic. PHYSICAL EXAMINATION: VITAL SIGNS: Temperature is 97, blood pressure is 109/60, respiratory rate of 21. HEENT: Unremarkable. NECK: Supple. LUNGS: Have decreased breath sounds. HEART: Normal S1, S2. ABDOMEN: Soft, nontender. LABORATORY DATA: Reveals a white count of 10,000, hemoglobin of 12 and platelets of 163. Coagulatio n is noted. BUN is noted and creatinine of 0.7 with a BUN of 49 and procalcitonin 0.89. Urinalysis is noted. Review of the orders reveals the patient to be on Zyvox and cefepime. ASSESSMENT AND PLAN: This is an 86-year-old male with systemic inflammatory response syndrome, sever e sepsis, acute renal failure, bilateral healthcare-associated pneumonia, possible gram-positive cocc i, possible gram-negative yael with elevated procalcitonin with hypertension, chronic bronchitis, Park inson's, history of seizures, gastroesophageal reflux disease, dementia, cachectic end-stage wasting syndrome with severe sepsis with x-rays of worsening infiltrates and cultures negative, on Zyvox and cefepime. The patient's overall prognosis is quite poor. Should consider hospice setting for this p atient who has end-stage cachexia wasting syndrome with poor quality of life. Avery Almodovar MD cc: 350 TT: 01/03/2017 10:54:34 Confirmation # [id number] Dictation # [id number] patricio
--- NOTE | 2017-01-03 14:51 | PN ---
DATE: 01/03/2017 The patient is an 86-year-old, seen and examined, awake and alert, but confused, disoriented, dry ora l mucosa, unable to eat, belly seems to be distended. PHYSICAL EXAMINATION: VITAL SIGNS: He is afebrile, pulse 81, respirations 21, blood pressure 109/67. LUNGS: Bilateral fair airflow, no rhonchi or crackle. HEART: S1, S2 audible. ABDOMEN: Soft, but slightly distended. Bowel sounds are sluggish. NEUROLOGIC: He is lethargic, but opens eyes on verbal command. EXTREMITIES: Bilateral legs, dry skin. No ulcers. ASSESSMENT: 1. Acute renal failure. 2. Hypernatremia, secondary to poor oral intake. 3. Dementia. 4. Metabolic encephalopathy. 5. Sepsis. PLAN: Currently, patient is n.p.o. We will keep him on 60 mL of IV fluids. We will keep him n.p.o. , give him IV fluids and give him 1 Dulcolax suppository. I will order for x-ray of the abdomen to r ule out any obstruction. He is currently getting cefepime. The patient is DNR. Overall prognosis i s poor. Family is thinking about PEG placement. Osvaldo Collins MD cc: [phone] TT: 01/03/2017 14:51:29 Confirmation # [id number] Dictation # [id number] en
[2017-01-04] MEDS: Linezolid 600 mg in D5W 300 ml 300 ML IVPB SCH ×2 (05:27→17:29)
[2017-01-04 06:41] LABS: ADD MANUAL DIFF? NO
[2017-01-04 06:48] LABS: EOS % 0.1 % (1.5-5.0); GRAN # 6.59 (1.4-6.5); GRAN % 86.4 % (50.0-68.0); HEMATOCRIT 34.4 % (42.0-52.0); LYMPH # 0.6 (1.2-3.4); LYMPH % 7.7 % (22.0-35.0); MEAN CORPUSCULAR HGB CONC 33.7 g/dl (31.0-37.0); MEAN PLATELET VOLUME 11.6 fl (7.0-11.0); MONO # 0.4 (0.1-0.6); MONO % 5.8 % (1.0-6.0); PLATELET COUNT 130 10^3/uL (120.0-450.0); RED CELL DISTRIBUTION WIDTH 16.1 % (11.5-14.5); WHITE BLOOD COUNT 7.6 10^3/ul (4.5-11.0)
[2017-01-04 07:12] LABS: INR 3.03 (0.93-1.08); PARTIAL THROMBOPLASTIN TIME 37.4 Seconds (23.7-30.8)
[2017-01-04 07:19] LABS: ALB/GLOB RATIO 0.6 (1.1-1.8); ALKALINE PHOSPHATASE 88 U/L (38-133); ALT/SGPT 10 U/L (7-56); AST/SGOT 23 U/L (15-59); BLOOD UREA NITROGEN 47 mg/dL (7-21); CALCIUM 9.3 mg/dL (8.4-10.5); CARBON DIOXIDE 26 mmol/L (21-33); CHLORIDE 119 mmol/L (98-107); GFR AFRICAN-AMERICAN > 60; GLUCOSE,RANDOM 182 mg/dL (70-110); PHOSPHOROUS 1.8 mg/dL (2.5-4.5); POTASSIUM 3.3 mmol/L (3.6-5.0); SODIUM 155 mmol/L (132-148); TOTAL PROTEIN 6.9 g/dL (5.8-8.3)
[2017-01-04] MEDS: Albuterol-Ipratrop 3 mg / 0.5 (3 ml) UD IH SCH ×2 (08:04→19:55)
--- NOTE | 2017-01-04 08:53 | PN ---
DATE: 01/04/2017 SUBJECTIVE: The patient opens eyes, but does not respond much. PHYSICAL EXAMINATION: VITAL SIGNS: Temperature is 98.2, pulse of 98, blood pressure is 144/88, respirations 24. GENERAL: The patient comfortable, in no acute distress. HEENT: Anicteric sclerae. Moist mucosa. NECK: No JVD or adenopathy. CARDIAC: S1/S2. No murmurs. No rubs. Regular. RESPIRATORY: Clear to auscultation bilaterally. No wheezes, rales, or rhonchi. Good air entry. ABDOMEN: Bowel sounds are positive, soft, nontender, and nondistended. EXTREMITIES: No edema. Has 1+ pulses. LABORATORIES: White count of 7.6, hemoglobin 11.6. Potassium is 3.3, creatinine 0.6. ASSESSMENT: 1. Hypernatremia. 2. Hypokalemia. 3. Dementia, Alzheimer's type. 4. Failure to thrive. 5. Sepsis. 6. Gait dysfunction. 7. Hearing impairment. 8. Do not resuscitate/do not intubate. PLAN: The patient is being given IV fluids. The patient is on D5 with dextrose. I will place potas sium in his fluids. We will need to increase his IV fluids. The patient is on nebulizer treatments. He is on cefepime for antibiotics. His blood cultures and urine cultures have been negative. He i s being followed by infectious disease. I did review Dr. Almodovar's note from yesterday. The judy ent is do not resuscitate/do not intubate. I have had Sarah Paramonte evaluate the patient. The patie nt remains n.p.o. Overall prognosis is poor. Burke Delcid MD cc: [phone] TT: 01/04/2017 08:52:11 Confirmation # [id number] Dictation # [id number] en
[2017-01-04] MEDS: Cefepime IV 2 gm in NS 100 ML IVPB SCH ×2 (09:31→21:36)
[2017-01-04] MEDS: Phenytoin 100 mg/2 ml Inj IVP SCH ×3 (09:32→17:29)
[2017-01-04] MEDS: Dextrose 5%/0.45% NS 1,000 ML IV SCH (10:21)
[2017-01-04] MEDS: Potassium Chloride 20 mEq 100 ML IVPB SCH ×2 (10:21→13:46)
--- NOTE | 2017-01-04 11:56 | CP.PCM.PN ---
Subjective - Date & Time of Evaluation Date of Evaluation: 01/04/17 Time of Evaluation: 10:00 - Subjective Subjective: Lethargic, opens eyes when name is called. In no acute distress. Objective - Vital Signs/Intake and Output Vital Signs (last 24 hours): Temp Pulse Resp BP Pulse Ox 98.2 F 90 21 104/59 L 88 L 01/04/17 06:00 01/04/17 06:00 01/04/17 06:00 01/04/17 06:00 01/04/17 06:00 Intake and Output: 01/04/17 01/04/17 06:59 18:59 Intake Total 2700 Balance 2700 - Medications Medications: Current Medications Albuterol/Ipratropium (Duoneb 3 Mg/0.5 Mg (3 Ml) Ud) 3 ml IH BID KRISTYN Last Admin: 01/04/17 08:04 Dose: 3 ml Albuterol/Ipratropium (Duoneb 3 Mg/0.5 Mg (3 Ml) Ud) 3 ml IH [id number] PRN PRN Reason: Shortness of Breath Last Admin: 01/02/17 20:37 Dose: 3 ml Cefepime HCl (Maxipime 2gm) 100 mls @ 100 mls/hr IVPB Q12 KRISTYN PRN Reason: Protocol Stop: 01/05/17 22:31 Last Admin: 01/04/17 09:31 Dose: 100 mls/hr Linezolid (Zyvox 600mg/300ml D5w) 300 mls @ 200 mls/hr IVPB 0600,1800 KRISTYN PRN Reason: Protocol Stop: 01/05/17 06:01 Last Admin: 01/04/17 05:27 Dose: 200 mls/hr Potassium Chloride (Potassium Chloride 20 Meq/100 Ml) 100 mls @ 50 mls/hr IVPB Q2H KRISTYN Stop: 01/04/17 13:59 Last Admin: 01/04/17 10:21 Dose: 50 mls/hr Dextrose/Sodium Chloride (Dextrose 5%/0.45% Ns 1000 Ml) 1,000 mls @ 75 mls/hr IV .[id number] KRISTYN Last Admin: 01/04/17 10:21 Dose: 75 mls/hr Phenytoin (Dilantin) 100 mg IVP TID KRISTYN Last Admin: 01/04/17 09:32 Dose: 100 mg - Labs Labs: 01/04/17 05:45 01/04/17 05:45 PT 32.7 Seconds (9.9-11.8) H* 01/04/17 06:30 INR 3.03 (0.93-1.08) H 01/04/17 06:30 APTT 37.4 Seconds (23.7-30.8) H 01/04/17 06:30 - Constitutional Appears: Cachectic, Chronically Ill - Eye Exam Eye Exam: Normal appearance, PERRL - ENT Exam ENT Exam: Mucous Membranes Moist, Normal Oropharynx - Neck Exam Neck Exam: Normal Inspection - Respiratory Exam Respiratory Exam: Decreased Breath Sounds, NORMAL BREATHING PATTERN - Cardiovascular Exam Cardiovascular Exam: REGULAR RHYTHM, +S1, +S2 - GI/Abdominal Exam GI & Abdominal Exam: Soft, Diminished Bowel Sounds - Exam Additional comments: oliguric - Back Exam Back Exam: NORMAL INSPECTION - Neurological Exam Neurological Exam: Altered - Skin Skin Exam: Dry, Pallor Assessment and Plan - Assessment and Plan (Free Text) Assessment: 86 year old male, resident of [facility] admitted with failure to thrive, hypernartemia, altered mental status. Family had been considering PEG placement. I had a lengthy discussion with patient's daughter Freida on Wednesday regarding his status as well as the benefits and burdens of PEG feedings. Hospice option for care also discussed at that time. Daughter wanted to wait the weekend before making any decision regarding goals of care. Dr Valdivia has since seen the patient and indicated in his consult note that patient is not a candidate for PEG due to advanced dementia and overall poor prognosis. I contacted patient daughter via phone this morning. she was working . She indicated that she did want to speak with me but could not talk till later in the day. She stated that she would call me this afternoon.
--- NOTE | 2017-01-04 12:26 | PN ---
DATE: 01/04/2017 SUBJECTIVE: The patient is lying in bed. His eyes are open, but the patient is nonverbal. He is no t taking any nutrition by mouth. PHYSICAL EXAMINATION: VITAL SIGNS: Reveal temperature of 98.2, blood pressure 104/59, heart rate of 90. HEENT: Revealed bitemporal wasting. Oral mucosa is dry. NECK: Supple. CHEST: Revealed distant breath sounds. HEART: Reveals regular rate and rhythm. ABDOMEN: Soft, nontender. LABORATORY DATA: Reveal BUN of 47, creatinine 0.6, sodium remains high at 155, potassium is 3.3, blo od sugar is 182. IMPRESSION: This is an 86-year-old male with advanced Alzheimer dementia, admitted to the hospital w ith hypernatremia, coagulopathy, poor oral intake and failure to thrive for several weeks. He does h ave an advanced directive that says that if "there is no reasonable expectation of regaining a meanin gful quality of life, then life-prolonging measures such as artificially administered fluids and nutr ition" should be withheld. Due to the patient's advanced Alzheimer's dementia, he is unlikely to reg ain any meaningful quality of life. RECOMMENDATIONS: Agree with palliative care and consideration of hospice. Saul Valdivia MD cc: [phone] TT: 01/04/2017 12:25:14 Confirmation # [id number] Dictation # [id number] en
--- NOTE | 2017-01-04 17:19 | CP.PCM.PN ---
Subjective - Date & Time of Evaluation Date of Evaluation: 01/04/17 Time of Evaluation: 09:50 - Subjective Subjective: Comfortable in bed, not in distress, no fevers overnight. Objective - Vital Signs/Intake and Output Vital Signs (last 24 hours): Temp Pulse Resp BP Pulse Ox 98.2 F 98 H 24 144/88 93 L 01/03/17 17:00 01/03/17 17:00 01/03/17 17:00 01/03/17 17:00 01/03/17 17:00 Intake and Output: 01/04/17 01/04/17 06:59 18:59 Intake Total 2700 Balance 2700 - Medications Medications: Current Medications Albuterol/Ipratropium (Duoneb 3 Mg/0.5 Mg (3 Ml) Ud) 3 ml IH BID KRISTYN Last Admin: 01/04/17 08:04 Dose: 3 ml Albuterol/Ipratropium (Duoneb 3 Mg/0.5 Mg (3 Ml) Ud) 3 ml IH [id number] PRN PRN Reason: Shortness of Breath Last Admin: 01/02/17 20:37 Dose: 3 ml Cefepime HCl (Maxipime 2gm) 100 mls @ 100 mls/hr IVPB Q12 KRISTYN PRN Reason: Protocol Stop: 01/05/17 22:31 Last Admin: 01/03/17 22:08 Dose: 100 mls/hr Linezolid (Zyvox 600mg/300ml D5w) 300 mls @ 200 mls/hr IVPB 0600,1800 KRISTYN PRN Reason: Protocol Stop: 01/05/17 06:01 Last Admin: 01/04/17 05:27 Dose: 200 mls/hr Phenytoin (Dilantin) 100 mg IVP TID KRISTYN Last Admin: 01/03/17 17:46 Dose: 100 mg - Labs Labs: 01/04/17 05:45 01/04/17 05:45 PT 32.7 Seconds (9.9-11.8) H* 01/04/17 06:30 INR 3.03 (0.93-1.08) H 01/04/17 06:30 APTT 37.4 Seconds (23.7-30.8) H 01/04/17 06:30 - Constitutional Appears: Non-toxic, No Acute Distress - Head Exam Head Exam: NORMAL INSPECTION - Neck Exam Neck Exam: absent: Lymphadenopathy, Meningismus - Respiratory Exam Respiratory Exam: Decreased Breath Sounds - Cardiovascular Exam Cardiovascular Exam: +S1, +S2 - GI/Abdominal Exam GI & Abdominal Exam: Soft. absent: Tenderness Assessment and Plan - Assessment and Plan (Free Text) Plan: Assessment consider severe sepsis with acute renal failure from bilateral healthcare- associated pneumonia with possible gram positive cocci and/or gram negative bacilli, slowly improving HTN chronic bronchitis Parkinson's disease history of seizures GERD dementia Plan continue Zyvox and Cefepime (Day 4); targert 4-7 days of therapy Will continue to follow clinically Overall prognosis is poor for this patient
[2017-01-04 17:58] VITALS: RESP 18
[2017-01-04] MEDS: Phytonadione 10 mg/ml Inj (Adult) SC SCH (18:28)
--- NOTE | 2017-01-04 20:34 | CON ---
DATE: 01/04/2017 REQUESTED BY: Dr. Burke Delcid. REASON FOR CONSULTATION: Coagulopathy. HISTORY OF PRESENT ILLNESS: The patient is an 86-year-old male admitted to the hospital for failure to thrive from shelter. He was admitted for placement of PEG tube placement because he was not eating and drinking. He does not respond to verbal commands. He was found to be coagulopathic with elevated PT, PTT, INR. PTT elevated to 37, INR to 3 and PT of 32. He does not have overt bleeding. No petechie, no rash. No dark colored stools. He was also found to have an elevated white count of 15,000 on admission. He has bilateral lung infiltrates, for which he is on IV antibiotics. He is being treated for sepsis and acute renal failure, also hypernatremia. He has advanced dementia and does not respond to verbal command. His sodium is improving. Palliative care services following for possible hospice placement. Review of Systems : as per HPI, rest 12 point system reviewed negative. ALLERGIES: No known drug allergies. PAST MEDICAL HISTORY: Dementia, bipolar disorder, osteoarthritis, hearing impairment, hypertension, Parkinson disease, dementia, GERD. PAST SURGICAL HISTORY: Skin graft to right leg. FAMILY HISTORY: No positive history in mother or father. HOME MEDICATIONS: Tylenol 650 q. 4 hours p.r.n., multivitamin, Dilantin 200 mg p.o. b.i.d. CURRENT MEDICATIONS: DuoNeb 3 mL q. 6 hours p.r.n., cefepime IV, Zyvox b.i.d., Dilantin 100 mg IV t.i.d. LABORATORY DATA: White count on admission 15,000, hemoglobin 11.6, platelet count 130. PT 32.7, INR 3, PTT 37. Sodium 155, potassium 3.3, creatinine 0.6, phosphorus 1.8 and creatinine 0.6. PHYSICAL EXAMINATION: GENERAL: Comfortable in bed, in no acute distress, not arousable. Does not respond to verbal command. VITAL SIGNS: Blood pressure 130/61, temperature 98.4, heart rate is 73 per minute, oxygen saturation 96% on nasal cannula. HEENT: Head atraumatic, normocephalic. Oral mucosa dry. NECK: No lymphadenopathy. Pupils equally reacting to light. The rest of HEENT is normal. CHEST: Air entry present, equal bilateral. No added sound. CARDIOVASCULAR: Within normal limits. ABDOMEN: Soft, nontender, no hepatosplenomegaly. EXTREMITIES: No edema. SKIN: No petechia, no rash. CENTRAL NERVOUS SYSTEM: Not oriented to time, place, person. No focal neurosensory deficit. Lymphadenopathy none. ASSESSMENT: 1. Coagulopathy. 2. Leukocytosis. 3. Anemia. 4. Hypernatremia. 5. Sepsis. 6. Bilateral lung infiltrate. 7. Parkinson disease. 8. Advanced dementia. 9. Gastroesophageal reflux disease. 10. Failure to thrive. PLAN: 1. He is coagulopathic with elevated PT, PTT, INR, likely due to malnutrition and liver dysfunction. Vitamin K 10 mg subQ for 3 days ordered. It might improve the coagulopathy. If it does not he might have factor deficiency that can be acquired. I will hold the workup as he might be placed on hospice soon for failure to thrive. Will monitor PT, PTT, INR. 2. Leukocytosis. He is on IV antibiotic. White count improved. 3. Anemia, multifactorial. We will continue to monitor hemoglobin and hematocrit. Will hold the workup for anemia for now. 4. Bilateral pneumonia, currently on Zyvox and cefepime. ID notes reviewed. 5. Neurologic. Sensorium altered. No focal sensorimotor deficit, advanced dementia. 6. Failure to thrive, not eating and drinking. PEG tube placement is on hold. Discussed with the staff nurse. Thank you, Dr. Delcid, for allowing us to participate in the patient's care. Salima Daniels MD cc: [id number] TT: 01/04/2017 20:33:09 Confirmation # [id number] Dictation # [id number] [facility]
[2017-01-05] MEDS: Linezolid 600 mg in D5W 300 ml 300 ML IVPB SCH (05:22)
[2017-01-05] MEDS: Dextrose 5%/0.45% NS 1,000 ML IV SCH (05:22)
[2017-01-05 07:10] LABS: ALB/GLOB RATIO 0.6 (1.1-1.8); ALKALINE PHOSPHATASE 88 U/L (38-133); ALT/SGPT 12 U/L (7-56); AST/SGOT 24 U/L (15-59); BILIRUBIN,TOTAL 1.2 mg/dL (0.2-1.3); BLOOD UREA NITROGEN 41 mg/dL (7-21); CALCIUM 9.4 mg/dL (8.4-10.5); CARBON DIOXIDE 24 mmol/L (21-33); CHLORIDE 120 mmol/L (98-107); GFR AFRICAN-AMERICAN > 60; GLUCOSE,RANDOM 169 mg/dL (70-110); POTASSIUM 4.1 mmol/L (3.6-5.0); TOTAL PROTEIN 7.2 g/dL (5.8-8.3)
[2017-01-05 07:11] LABS: HEMATOCRIT 35.6 % (42.0-52.0); MEAN CELL VOLUME 98.6 fL (80.0-105.0); MEAN CORPUSCULAR HGB CONC 33.4 g/dl (31.0-37.0); MEAN PLATELET VOLUME 11.8 fl (7.0-11.0); RED CELL DISTRIBUTION WIDTH 16.1 % (11.5-14.5); WHITE BLOOD COUNT 6.6 10^3/ul (4.5-11.0)
[2017-01-05 07:24] LABS: SODIUM 156 mmol/L (132-148)
[2017-01-05] MEDS: Albuterol-Ipratrop 3 mg / 0.5 (3 ml) UD IH SCH (07:27)
[2017-01-05] MEDS ORDERED: WATER IV SCH (08:00)
[2017-01-05] MEDS ORDERED: POTASSIUM PHOSPHATE IV SCH (08:00)
[2017-01-05] MEDS ORDERED: DEXTROSE IV SCH (08:00)
[2017-01-05] MEDS: Cefepime IV 2 gm in NS 100 ML IVPB SCH (09:30)
[2017-01-05] MEDS: Phytonadione 10 mg/ml Inj (Adult) SC SCH (09:31)
[2017-01-05] MEDS: Phenytoin 100 mg/2 ml Inj IVP SCH (09:31)
[2017-01-05 09:36] VITALS: BP 120/72; PULSE 85; TEMP 98.8; O2SAT 86
--- NOTE | 2017-01-05 09:46 | CP.PCM.PN ---
Subjective - Date & Time of Evaluation Date of Evaluation: 01/05/17 Time of Evaluation: 10:00 - Subjective Subjective: Very lethargic, non verbal. In no acute distress. Objective - Vital Signs/Intake and Output Vital Signs (last 24 hours): Temp Pulse Resp BP Pulse Ox 98.8 F 85 18 120/72 86 L 01/05/17 06:00 01/05/17 06:00 01/05/17 06:00 01/05/17 06:00 01/05/17 06:00 Intake and Output: 01/05/17 01/05/17 06:59 18:59 Intake Total 0 0 Output Total 0 Balance 0 0 - Medications Medications: Current Medications Albuterol/Ipratropium (Duoneb 3 Mg/0.5 Mg (3 Ml) Ud) 3 ml IH BID KRISTYN Last Admin: 01/05/17 07:27 Dose: 3 ml Albuterol/Ipratropium (Duoneb 3 Mg/0.5 Mg (3 Ml) Ud) 3 ml IH [id number] PRN PRN Reason: Shortness of Breath Last Admin: 01/02/17 20:37 Dose: 3 ml Cefepime HCl (Maxipime 2gm) 100 mls @ 100 mls/hr IVPB Q12 KRISTYN PRN Reason: Protocol Stop: 01/05/17 22:31 Last Admin: 01/05/17 09:30 Dose: 100 mls/hr Potassium Phosphate 30 mmole/ (Dextrose) 1,010 mls @ 125 mls/hr IV .Q8H5M KRISTYN Stop: 01/05/17 16:04 Dextrose (Dextrose 5% In Water 1000 Ml) 1,000 mls @ 125 mls/hr IV .Q8H KRISTYN Phenytoin (Dilantin) 100 mg IVP TID [facility] Last Admin: 01/05/17 09:31 Dose: 100 mg Phytonadione (Vitamin K Inj) 10 mg SC DAILY KRISTYN Stop: 01/06/17 18:00 Last Admin: 01/05/17 09:31 Dose: 10 mg - Labs Labs: 01/05/17 06:00 01/05/17 06:00 PT 32.7 Seconds (9.9-11.8) H* 01/04/17 06:30 INR 3.03 (0.93-1.08) H 01/04/17 06:30 APTT 37.4 Seconds (23.7-30.8) H 01/04/17 06:30 - Constitutional Appears: Cachectic, Chronically Ill - Eye Exam Eye Exam: Normal appearance, PERRL - ENT Exam ENT Exam: Mucous Membranes Moist - Neck Exam Neck Exam: Normal Inspection - Respiratory Exam Respiratory Exam: Decreased Breath Sounds, NORMAL BREATHING PATTERN - Cardiovascular Exam Cardiovascular Exam: REGULAR RHYTHM, +S1, +S2 - GI/Abdominal Exam GI & Abdominal Exam: Soft, Diminished Bowel Sounds - Extremities Exam Extremities Exam: Normal Capillary Refill, Normal Inspection - Neurological Exam Neurological Exam: Altered - Skin Skin Exam: Dry, Pallor Assessment and Plan - Assessment and Plan (Free Text) Assessment: 86 year old male resident of [facility] admitted with appetite,failure to thrive, advanced dementia. Patient status continues to decline. He is lethrgic, non verbal, refusing food and fluids. Family spoke with Dr Patrice Delcid. They are requesting he be sent back to [facility] today on comfort measures only. Plan: Discharge to [facility] comfort care today
--- NOTE | 2017-01-05 13:30 | PN ---
DATE: 01/05/2017 The patient is lethargic in bed. PHYSICAL EXAMINATION: VITAL SIGNS: Blood pressure 120/72, the heart rate is in the 80s. NECK: Negative JVD. LUNGS: Without rales. HEART: Reveals S1, S2. EXTREMITIES: Without change. LABORATORIES: Hemoglobin is 11.5. Chemistries: Sodium is up to 156. PLAN: The patient is for palliative care. The patient's prognosis is poor, his dehydration is progr essing, so supportive care only. Moises Vaughan MD cc: [id number] TT: 01/05/2017 13:29:03 Confirmation # [id number] Dictation # [id number] cn
--- NOTE | 2017-01-05 13:50 | CP.PCM.PN ---
Subjective - Date & Time of Evaluation Date of Evaluation: 01/05/17 Time of Evaluation: 08:55 - Subjective Subjective: Somewhat lethargic, no fevers overnight; patient noted to be refusing food. Objective - Vital Signs/Intake and Output Vital Signs (last 24 hours): Temp Pulse Resp BP Pulse Ox 98.8 F 85 18 120/72 86 L 01/05/17 06:00 01/05/17 06:00 01/05/17 06:00 01/05/17 06:00 01/05/17 06:00 Intake and Output: 01/05/17 01/05/17 06:59 18:59 Intake Total 0 0 Output Total 0 Balance 0 0 - Labs Labs: 01/05/17 06:00 01/05/17 06:00 PT 32.7 Seconds (9.9-11.8) H* 01/04/17 06:30 INR 3.03 (0.93-1.08) H 01/04/17 06:30 APTT 37.4 Seconds (23.7-30.8) H 01/04/17 06:30 - Constitutional Appears: Non-toxic, Other (somewhat lethargic) - Head Exam Head Exam: NORMAL INSPECTION - Neck Exam Neck Exam: absent: Meningismus - Respiratory Exam Respiratory Exam: Decreased Breath Sounds - Cardiovascular Exam Cardiovascular Exam: +S1, +S2 - GI/Abdominal Exam GI & Abdominal Exam: Soft. absent: Tenderness Assessment and Plan - Assessment and Plan (Free Text) Plan: Assessment consider severe sepsis with acute renal failure from bilateral healthcare- associated pneumonia with possible gram positive cocci and/or gram negative bacilli, slowly improving HTN chronic bronchitis Parkinson's disease history of seizures GERD dementia Plan continue Zyvox and Cefepime (Day 5); target 4-7 days of therapy Overall prognosis is poor for this patient
--- NOTE | 2017-01-05 21:53 | DS ---
This is an 86-year-old male who is coming into the hospital because of sepsis. The patient had a nos ocomial pneumonia. He was started on IV fluids because of dehydration and hypernatremia. The patien t had improvement of his symptoms. His white count improved. He was also being evaluated for PEG pl acement. The patient's infection improved. He has Advanced Directives that were signed in 2003 river cating that "if there is no reasonable expectation of recovery or a meaningful quality of life, then life prolonging measures should not be initiated." The patient is not able to respond. I spok e to the patient's daughter and had a long discussion this morning about end of life care. She has b een having these discussions previously by Sarah Newton. He is going to be discharged back to [facility] today with no PEG placement. PHYSICAL EXAMINATION: VITAL SIGNS: Temperature is 98.4, pulse is 73, blood pressure 113/61, respirations 18, O2 saturation 96%. GENERAL: The patient comfortable, in no acute distress. HEENT: Anicteric sclerae. Moist mucosa. NECK: No JVD or adenopathy. CARDIAC: S1/S2. No murmurs. No rubs. Regular. RESPIRATORY: Clear to auscultation bilaterally. No wheezes, rales, or rhonchi. Good air entry. ABDOMEN: Bowel sounds are positive, soft, nontender, and nondistended. EXTREMITIES: No edema. Has 1+ pulses. ASSESSMENT: 1. Hypernatremia. 2. Hypokalemia. 3. Hypophosphatemia. 4. Dementia, Alzheimer's type, end-stage. 5. Failure to thrive. 6. Sepsis secondary to nosocomial pneumonia. 7. Gait dysfunction. 8. Hearing impairment. 9. Coagulopathy. 10. Malnutrition, moderate. PLAN: The patient is currently on D5 water. He is on cefepime. The patient was given vitamin K. T he patient is going to be discharged to [facility] on with comfort care. I did speak to the patient's daughter to give her an update of the patient's poor prognosis. Burke Delcid MD cc: [id number] TT: 01/05/2017 21:52:40 dn
== END 2017-01-05 13:07 | DRG 871 ==
LOC: ED 12:30 → ERH 15:13 → 2RSO 17:58 → 3RNO 01-01 15:45
PROVIDERS: ADMIT Internal Medicine Nephrology; ATTEND Internal Medicine Nephrology
DX: A41.9 Sepsis, unspecified organism (principal); J18.9 Pneumonia, unspecified organism; G93.41 Metabolic encephalopathy; N17.9 Acute kidney failure, unspecified; I11.0 Hypertensive heart disease with heart failure; E87.0 Hyperosmolality and hypernatremia; J44.0 Chronic obstructive pulmonary disease with (acute) lower respiratory infection; I50.9 Heart failure, unspecified; E44.0 Moderate protein-calorie malnutrition; R64 Cachexia; Z68.1 Body mass index [BMI] 19.9 or less, adult; G30.9 Alzheimer's disease, unspecified; F02.80 Dementia in other diseases classified elsewhere, unspecified severity, without behavioral disturbance, psychotic disturbance, mood disturbance, and anxiety; E86.0 Dehydration; R65.20 Severe sepsis without septic shock; E87.6 Hypokalemia; R62.7 Adult failure to thrive; R26.9 Unspecified abnormalities of gait and mobility; H91.90 Unspecified hearing loss, unspecified ear; E83.39 Other disorders of phosphorus metabolism; R09.02 Hypoxemia; F31.9 Bipolar disorder, unspecified; M19.90 Unspecified osteoarthritis, unspecified site; Y95 Nosocomial condition; Z66 Do not resuscitate; K21.9 Gastro-esophageal reflux disease without esophagitis; G20 Parkinson's disease; R56.9 Unspecified convulsions; R79.1 Abnormal coagulation profile; Z51.5 Encounter for palliative care; Z87.891 Personal history of nicotine dependence; Z74.01 Bed confinement status